=== PATIENT | female | born 1945 | race Caucasian/White ===

== ENCOUNTER → 2018-12-15 09:00 | Outpatient (CLI) | payer MEDICARE, BC ==
--- NOTE | ~2018-12-15 | EC ---
PATIENT:DAVID JENNINGS DATE OF SERVICE: 12/15/18 SEX: F MEDICAL RECORD: [id number] DATE OF : [birth year] LOCATION:D.[facility] AGE OF PATIENT: 73 ADMISSION DATE: 12/15/18 REFERRING PHYSICIAN: INTERPRETING PHYSICIAN: REESE BLUM MD ECHOCARDIOGRAM REPORT ECHO CHARGES 4 ECHO COMPLETE Date: 12/15/18 CLINICAL DIAGNOSIS: ANGINA/PVC'S/MURMUR/HTN ECHOCARDIOGRAPHIC MEASUREMENTS (adult normal given) AC root (d.<3.7cm) 3.1 cm LV Septum d (<1.2 cm> 1.3 cm Valve Excursion 1.6 cm LV Septum (systole) 2.1 cm Left Atria (s.<4.0cm> 3.6 cm LVPW d(<1.2cm) 1.6 cm RV (d.<2.3cm) 2.6 cm LVPW (sytole) 2.3 cm LV diastole(<5.6CM) 6.4 cm MV E-F(>70mm/sec) cm LV systole 4.3 cm LVOT Diameter 2.2 cm MV exc.(>10mm) cm Est.ejection fraction (50-75%) % DOPPLER: LVIT cm/sec A 42.0 cm/sec E 49.0 cm/sec LA cm/sec RVSP 36.0 mmHg LVOT 95.0 cm/sec AOP1/2T m/s Asc. Ao 118 cm/sec RVOT 56.0 cm/sec RA cm/sec PA 86.0 cm/sec AV Gradient Peak 5.6 mmHg AV Mean 2.8 mmHg AV Area 3.1 cm MV Gradient Peak 2.0 mmHg MV Mean 0.61 mmHg MV Area cm COMMENTS: OP - HC Larry Car Operator: 1 CUCO JESSI Centrifugal Drier Operator: 3 Dr. Borrego TAPE# PACS Pericardial Effusion N DATE OF SERVICE: Adequate 2D, color flow, spectral Doppler, and M-Mode. Mild LVH. LV internal dimension is normal. Wall motion is normal. EF is greater than or equal to 55%. Aortic valve sclerosis without evidence of stenosis on Doppler interrogation. Mild AI on color flow imaging. Left atrium is normal at 3.6 cm. Mitral valve shows no prolapse. Mild MR. Right-sided chambers grossly normal. Mild TR. TRANSINT:[id number] Voice Confirmation ID: [id number] DOCUMENT ID: [id number] ECHOCARDIOGRAM REPORT [id number] DAVID JENNINGS GREGORY A MD CC: [id number] DICTATION DATE: 12/16/18 1202 PATHOLOGY COLLECTOR: 12/16/18 1307 DEP CLI 12/15/18 [place] [id number] [place] [id number]
== END | disposition home or self-care (01) ==
LOC: D.HCCARDIO 09:00
PROVIDERS: ATTEND Internal Medicine Cardiovascular Disease
DX: R01.1 Cardiac murmur, unspecified (principal); I20.9 Angina pectoris, unspecified

== ENCOUNTER → 2021-01-04 11:14 | Outpatient (CLI) | payer MEDICARE, BC ==
[2019-09-11 13:39] VITALS: BMI 29.7
--- NOTE | ~2021-01-04 | EC ---
PATIENT:DAVID JENNINGS DATE OF SERVICE: 01/04/21 SEX: F MEDICAL RECORD: [id number] DATE OF : [birth year] LOCATION:D.[facility] AGE OF PATIENT: 75 ADMISSION DATE: 01/04/21 REFERRING PHYSICIAN: INTERPRETING PHYSICIAN: REESE BLUM MD ECHOCARDIOGRAM REPORT ECHO CHARGES 4 ECHO COMPLETE Date: 01/04/21 CLINICAL DIAGNOSIS: HX OF HTN PAOPITATIONS ASSESS EF AI/MR/TR ECHOCARDIOGRAPHIC MEASUREMENTS (adult normal given) AC root (d.<3.7cm) 3.4 cm LV Septum d (<1.2 cm> 1.3 cm Valve Excursion 1.9 cm LV Septum (systole) 1.6 cm Left Atria (s.<4.0cm> 3.5 cm LVPW d(<1.2cm) 1.3 cm RV (d.<2.3cm) 3.2 cm LVPW (sytole) 1.8 cm LV diastole(<5.6CM) 5.3 cm MV E-F(>70mm/sec) cm LV systole 3.8 cm LVOT Diameter 1.7 cm MV exc.(>10mm) 1.6 cm Est.ejection fraction (50-75%) % DOPPLER: LVIT cm/sec A 61.0 cm/sec E 45.0 cm/sec LA cm/sec RVSP 36 mmHg LVOT 111 cm/sec AOP1/2T 786 m/s Asc. Ao 158 cm/sec RVOT 60 cm/sec RA cm/sec PA 100 cm/sec AV Gradient Peak 9.93 mmHg AV Mean 5.26 mmHg AV Area 1.6 cm MV Gradient Peak 1.48 mmHg MV Mean 0.64 mmHg MV Area cm COMMENTS: Lactation Nurse: 2 LOS POSADA Art Glass Designer: 3 Dr. Borrego TAPE# PACS Pericardial Effusion N DATE OF SERVICE: Adequate 2D, color flow imaging, spectral Doppler, and M-Mode. Mild LVH. LV internal dimensions are normal. Wall motion normal. EF greater than or equal to 55%. Aortic valve is tricuspid. No evidence of stenosis by Doppler interrogation. There is mild AI by color flow imaging. Left atrium is normal. Mitral valve shows no prolapse. Trace MR. Right-sided chambers are grossly normal. Mild TR. ECHOCARDIOGRAM REPORT [id number] DAVID JENNINGS TRANSINT:[id number] Voice Confirmation ID: [id number] DOCUMENT ID: [id number] REESE BLUM MD CC: [id number] DICTATION DATE: 01/04/21 164 SEALS ENGRAVER: 01/05/21 0018 DEP CLI 01/04/21 [facility] [address] [place] [id number]
[~2021-01-04 11:14] MED LIST: BAYER CHEWABLE81 MG PO; CENTRUM SILVER1 EAC3 PO; PEPCID40 MG PO; TOPROL XL50 MG PO
== END | disposition home or self-care (01) ==
LOC: D.HCCECHO 11:00
PROVIDERS: ATTEND Internal Medicine Interventional Cardiology
DX: I10 Essential (primary) hypertension (principal)